=== PATIENT | female | born 1935 | race Caucasian/White ===

== ENCOUNTER 2019-10-09 14:33 | Emergency (ER) | payer OTHER ==
[~2019-10-09] VITALS: Ht 167.6 cm; Wt 60.3 kg
--- NOTE | 2019-10-09 14:45 | NUR ---
PT CAME IN FOR MEDICAL CLEARANCE. +SI -HI. PT AAOX4, RESPIRATIONS EVEN AND UNLABORED W/ NAD NOTED, VSS. AWAITING FOR MD BINGHAM. PT WANDED, SAFETY PRECAUTIONS IMPLEMENTED. SITTER AT BEDSIDE
[2019-10-09] MEDS ORDERED: ASPI-1152 PO (14:53)
[2019-10-09] MEDS ORDERED: FOLI0.8T2 PO (14:53)
[2019-10-09] MEDS ORDERED: ASCO500T9 PO (14:53)
[2019-10-09] MEDS ORDERED: VITA1TAB56 PO (14:53)
[2019-10-09] MEDS ORDERED: OMEG1CAP40 PO (14:53)
[2019-10-09] MEDS ORDERED: CALC-7 PO (14:53)
[2019-10-09] MEDS ORDERED: UBID100C13 PO (14:53)
[2019-10-09] MEDS ORDERED: ACET-2605 PO (14:53)
[2019-10-09] MEDS ORDERED: TURM500C9 PO (14:53)
[2019-10-09] MEDS ORDERED: FURO-145 PO (14:53)
[2019-10-09] MEDS ORDERED: CHOL200026 PO (14:53)
[2019-10-09] MEDS ORDERED: OMEP20CA15 PO (14:53)
[2019-10-09] MEDS ORDERED: NIAC500T2 PO (14:53)
[2019-10-09] MEDS ORDERED: ACET1TAB12 PO (14:53)
[2019-10-09] MEDS ORDERED: METH1TAB30 PO (14:53)
[2019-10-09] MEDS ORDERED: POTA8TAB3 PO (14:53)
[2019-10-09] MEDS ORDERED: LISI-607 PO (14:53)
--- NOTE | 2019-10-09 15:00 | NUR ---
URINE COLLECTED AND SENT TO LAB
[2019-10-09 15:27] LABS: BASOPHILS % (AUTO) 0.6 % (0.0-2.0); EOSINOPHILS % (AUTO) 1.6 % (0.0-6.0); HEMATOCRIT 39 % (33-45); HEMOGLOBIN 12.8 g/dL (11.5-14.8); LYMPHOCYTES # (AUTO) 1.9 /CMM (0.8-4.8); LYMPHOCYTES % (AUTO) 26.5 % (20.0-44.0); MEAN CORPUSCULAR HGB CONC 33 g/dl (31.0-36.0); MEAN CORPUSCULAR VOLUME 99 fL (82-100); MONOCYTES # (AUTO) 0.8 /CMM (0.1-1.30); MONOCYTES % (AUTO) 11.8 % (2.0-12.0); NEUTROPHILS # (AUTO) 4.3 /CMM (1.8-8.9); NEUTROPHILS % (AUTO) 59.5 % (43.0-81.0); PLATELET COUNT (AUTO) 186 /CMM (150-450); RED BLOOD CELL COUNT(AUTO) 3.97 MIL/uL (4.0-5.2); WHITE BLOOD COUNT (AUTO) 7.2 K/uL (4.3-11.0)
[2019-10-09 15:32] LABS: APPEARANCE,URINE Clear (CLEAR); BILIRUBIN,URINE Negative (NEGATIVE); BLOOD, URINE Trace-intact Ery/uL (NEGATIVE); COLOR,URINE Yellow (YELLOW); KETONES,URINE Negative (NEGATIVE); LEUKOCYTE ESTERASE ,URINE Small (NEGATIVE); NITRITE, URINE Positive (NEGATIVE); PH,URINE 5.5 (5.0-8.0); PROTEIN,URINE Negative (NEGATIVE); UGLUCOSE Negative (NEGATIVE); UROBILINOGEN,URINE 0.2 EU/dL (0.2)
[2019-10-09 15:43] LABS: CALCIUM, SERUM 10.1 mg/dL (8.5-10.1); CARBON DIOXIDE 28 mmol/L (21-32); CHLORIDE 101 mmol/L (98-107); CREATININE 0.8 mg/dL (0.6-1.3); GLUCOSE 117 mg/dL (74-106); SODIUM SERUM 134 mmol/L (136-145); UREA NITROGEN, BLOOD 22 mg/dL (7-18)
[2019-10-09 15:47] LABS: BACTERIA,URINE 3+ /HPF (None Seen); SQUAMOUS EPITHELIAL CELL,UR Few /HPF (None Seen)
[2019-10-09 15:48] LABS: ALCOHOL, BLOOD < 3 mg/dL (0-0)
[2019-10-09 15:49] LABS: ACETAMINOPHEN 0 ug/ml (10-30); SALICYLATE 1.4 mg/dL (2.8-20.0)
--- NOTE | 2019-10-09 16:09 | NUR ---
CALLED [facility], SPOKE WITH MONY ([facility] COORDINATOR). Olga VILLAFANA ON-CALL. AWAITING FOR CALL BACK. PRIMARY NURSE AWARE.
--- NOTE | 2019-10-09 16:27 | NUR ---
CALLED AND LEFT A VM TO KARLO LAMBERT LCSW.
[2019-10-09] MEDS ORDERED: NITROFURANTOIN/NITROFURAN MAC 100 MG CAPSULE PO ONE (16:30)
--- NOTE | 2019-10-09 16:56 | NUR ---
[facility] CALLED BACK. 1 HR ETA.
--- NOTE | 2019-10-09 17:00 | NUR ---
ASA HEMPHILL FROM [facility]. CALL BACK NUMBER [phone] B[facility] NO [phone]
[2019-10-09 17:03] LABS: THYROID STIMULATING HORMONE 1.883 uIU/mL (0.358-3.74)
[2019-10-09] MEDS ORDERED: NITROFURANTOIN/NITROFURAN MAC 100 MG CAPSULE ONE (17:04)
[2019-10-09] MEDS ORDERED: ACETAMINOPHEN ES 500 MG TABLET ONE (17:06)
--- NOTE | 2019-10-09 17:18 | NUR ---
FAX NO BED FINDER [phone]
[2019-10-09] MEDS ORDERED: ACETAMINOPHEN ES 500 MG TABLET PO ONE (17:30)
--- NOTE | 2019-10-09 18:49 | NUR ---
SPOKE TO DARIAN REAGARDING PATIENT'S CURRENT HOLD STATUS.
--- NOTE | 2019-10-09 20:43 | NUR ---
FAX NO [phone] BED FINDERS
--- NOTE | 2019-10-09 20:44 | NUR ---
CALL BACK NO YOSEF [phone]
--- NOTE | 2019-10-09 21:39 | NUR ---
PT RESTING, ALERT AND AWAKE, VSS, NAD, SITTER AT BEDSIDE
--- NOTE | 2019-10-09 22:13 | NUR ---
PT ASLEEP, EASILY AROUSABLE, VSS, NO ACUTE DISTRESS NOTED.
[2019-10-10] MEDS ORDERED: ACETAMINOPHEN 325 MG TABLET ONE ×2 (01:07→07:28)
[2019-10-10] MEDS ORDERED: ACETAMINOPHEN 325 MG TABLET PO ONE ×2 (01:30→06:30)
--- NOTE | 2019-10-10 03:45 | NUR ---
PT SLEEPING IN RNEY. NO SIGNS OF DISTRESS NOTED. PT VITAL SIGNS STABLE. 1:1 SITTER AT BEDSIDE.
[2019-10-10] MEDS ORDERED: NITROFURANTOIN/NITROFURAN MAC 100 MG CAPSULE PO ONE (06:30)
[2019-10-10] MEDS ORDERED: NITROFURANTOIN/NITROFURAN MAC 100 MG CAPSULE ONE (07:28)
--- NOTE | 2019-10-10 08:10 | NUR ---
jeromy from [place] bed finders called back... pt going to [facility] [phone] ferrari // [facility] with female. eta [phone]
--- NOTE | 2019-10-10 08:42 | NUR ---
BREAKFAST TRAY PROVIDED, PATIENT TOLERATED PO WELL
--- NOTE | 2019-10-10 09:05 | NUR ---
REPORT GIVEN TO CRISTELA OF [facility]
[2019-10-10 09:43] VITALS: BP 130/64
--- NOTE | 2019-10-10 09:43 | NUR ---
Patient Tranfers to outside Facility in stable condition. Physician: Dr ferrari Location: [facility]
--- NOTE | 2019-10-10 09:44 | NUR ---
Transferred by [facility] Unit [id number]
--- NOTE | 2019-10-10 09:53 | NUR ---
ALL BELONGINGS RETURNED TO PATIENT
== END 2019-10-10 09:53 ==
LOC: ER 14:43
DX: R45.851 Suicidal ideations (principal); R21 Rash and other nonspecific skin eruption; N39.0 Urinary tract infection, site not specified; I10 Essential (primary) hypertension; I48.91 Unspecified atrial fibrillation; Z95.0 Presence of cardiac pacemaker; Z86.73 Personal history of transient ischemic attack (TIA), and cerebral infarction without residual deficits; Z79.82 Long term (current) use of aspirin; Z79.899 Other long term (current) drug therapy; Z88.9 Allergy status to unspecified drugs, medicaments and biological substances; Z88.8 Allergy status to other drugs, medicaments and biological substances; Z88.5 Allergy status to narcotic agent
CPT/HCPCS: 36415; 80048; 80305; 80307; 80329; 81001; 84443; 85025; 85610; 87086; 93005; 99285; G0480; 81000-TC